=== PATIENT | female | born 1980 | race Caucasian/White ===

== ENCOUNTER 2016-09-16 03:05 | Emergency (ER) | payer OTHER ==
[~2016-09-16] VITALS: Ht 160 cm; Wt 76.0 kg
[2016-09-16 03:09] VITALS: Ht 160 cm; Wt 76.0 kg
[2016-09-16] MEDS ORDERED: LIDOCAINE 2% (MDV) 20 ML INJ INJ ONE (04:00)
--- NOTE | 2016-09-16 04:24 | ERD ---
ER Documentation Chief Complaint Date/Time DATE: 09/16/16 TIME: 04:21 Chief Complaint lower lip laceration, heavy object fell on lip about 30 minutes ago HPI This is a 35-year-old female who presents the emergency department today for a cut on her lower lip. Patient states she was trying to bring some boxes down to prepare for her camping trip when a box fell on top of her lip. Denies any loss of consciousness. Denies any previous trauma, fevers or chills. States she took Advil. ROS All systems reviewed and are negative except as per history of present illness. Allergies Allergies: Coded Allergies: Penicillins (Verified Allergy, Mild, rash, 09/16/16) PMhx/Soc History of Surgery: Yes (breast augmentation) Anesthesia Reaction: No Hx Neurological Disorder: No Hx Respiratory Disorders: No Hx Cardiac Disorders: No Hx Psychiatric Problems: No Hx Miscellaneous Medical Probl: No Hx Alcohol Use: No Hx Substance Use: No Hx Tobacco Use: No Smoking Status: Never smoker Physical Exam Vitals Vital Signs Date Time Temp Pulse Resp B/P Pulse Ox O2 Delivery O2 Flow Rate FiO2 09/16/16 03:09 99.0 68 20 116/77 97 Physical Exam Const: Pleasant, no acute distress Head: Atraumatic Eyes: Normal Conjunctiva ENT: Normal External Ears, Nose . Lower lip with evidence of 1.5 cm laceration that does not cross the vermilion border. Bleeding well controlled Neck: Full range of motion..~ No meningismus. Resp: Clear to auscultation bilaterally Cardio: Regular rate and rhythm, no murmurs Skin: No petechiae or rashes Neur: Awake and alert Psych: Normal Mood and Affect Results 24 hrs Current Medications Medications (Trade) Dose Ordered Sig/Nando Route PRN Reason Start Time Stop Time Status Last Admin Dose Admin Lidocaine (Xylocaine 2% (Mdv) 20 ml) 20 ml ONCE ONCE INJ 09/16/16 04:00 09/16/16 04:01 DC Procedures/MDM This 35-year-old female presents the emergency department today for a lower lip laceration that she sustained just prior to arrival while attempting to move some boxes in her garage. Patient is afebrile and otherwise well-appearing. There is been no loss of consciousness. Her dentition is intact. Do not feel the patient requires imaging at this time. Low suspicion for acute hemorrhage, mass, abscess, fracture. On physical exam patient did have a 1.5 cm laceration to her lower lip that was rather deep. The area did not cross her vermilion border however given how deep it was I did feel it was beneficial to use some absorbable sutures. I have explained this to the patient. I explained the risks and benefits of the procedure and the patient agreed to proceed. Area was cleaned with sterile saline. Patient tolerated the procedure well and there were no complications Laceration Repair by me: Anesthesia: 1% lidocaine locally 3 cc Location: Lower lip Tendon/Joint/Nerves: No injury Foreign body: None detected after copious irrigation and exploration Technique: 5 simple Interrupted Sutures using 5-0 nylon Complexity: No subcutaneous sutures/mucosal repair/ edge excision Post Closure Length: 1.5 cm Patient's bleeding was easily controlled in the department and there is no indication of anemia. No evidence of compartment syndrome, neurologic injury, vascular injury, open joint, tendon laceration, or foreign body. Patient is appropriate for outpatient follow up. 48 hour wound check. Scar minimization instructions given. Patient declined any pain medication for home stating that she had Tylenol Motrin and did not want anything stronger. She was instructed to follow-up in 48 hours for a wound check. Do not feel the patient requires antibiotics at this time At this time the patient is stable for discharge and outpatient management. Patient should follow up with their PCP in the next 1-2 days. They may return to the emergency department sooner for any persistent or worsening of symptoms. Patient understood and agreed with the plan. Departure Diagnosis: Primary Impression: Lip laceration Encounter type: initial encounter Qualified Code: S01.511A - Lip laceration , initial encounter Condition: Fair Patient Instructions: Laceration, Lip/Mouth Additional Instructions: Call your primary care doctor TOMORROW for an appointment during the next 1-2 days.See the doctor sooner or return here if your condition worsens before your appointment time. Wound check in 48 hours Take Tylenol Motrin for pain Keep wound clean and dry BUSHRA MONTANO PA-C Sep 16, 2016 04:24
== END 2016-09-16 04:27 | disposition home or self-care (01) ==
LOC: FTE 03:05
DX: S01.511A Laceration without foreign body of lip, initial encounter (principal); W20.8XXA Other cause of strike by thrown, projected or falling object, initial encounter; Y92.9 Unspecified place or not applicable
CPT/HCPCS: 12011; Z7502; Z7610

== ENCOUNTER 2016-09-23 00:38 | Emergency (ER) | payer OTHER ==
[~2016-09-23] VITALS: Ht 160 cm; Wt 76.0 kg
[2016-09-23 00:44] VITALS: Ht 160 cm; Wt 76.0 kg
--- NOTE | 2016-09-23 01:45 | ERD ---
ER Documentation Chief Complaint Date/Time DATE: 09/23/16 TIME: 01:43 Chief Complaint suture removal HPI This is a 35-year-old female presents to the ER for suture removal. Patient had a laceration to her lip about a week ago. Patient denies any discharge from the area she denies any pain. She has not had any fevers or chills. She feels completely better. ROS 12 point review of systems was done, all negative except per HPI. Allergies Allergies: Coded Allergies: Penicillins (Verified Allergy, Mild, rash, 09/16/16) PMhx/Soc History of Surgery: Yes (breast augmentation) Anesthesia Reaction: No Hx Neurological Disorder: No Hx Respiratory Disorders: No Hx Cardiac Disorders: No Hx Psychiatric Problems: No Hx Miscellaneous Medical Probl: No Hx Alcohol Use: No Hx Substance Use: No Hx Tobacco Use: No Smoking Status: Never smoker Physical Exam Vitals Vital Signs Date Time Temp Pulse Resp B/P Pulse Ox O2 Delivery O2 Flow Rate FiO2 09/23/16 00:44 97.8 59 20 122/59 97 Physical Exam GENERAL: The patient is well developed and appropriate for usual state of health , in no apparent distress. HEENT: Atraumatic. patient has simple interrupted sutures on lip. CHEST: Clear to auscultation bilaterally. There are no rales, wheezes or rhonchi. HEART: Regular rate and rhythm. No murmurs, clicks, rubs or gallops. NEURO: Alert and oriented Procedures/MDM Suture Removal by me: Sutures removed with tweezers and scissors without incident. Wound shows no evidence of infection, foreign body, neurologic injury, vascular injury, open joint or tendon laceration. Patient to follow up PRN. Departure Diagnosis: Primary Impression: Encounter for removal of sutures Condition: Stable Patient Instructions: Suture Removal, No Complication Referrals: SOLITARIO BADILLO (PCP) Additional Instructions: Call your primary care doctor TOMORROW for an appointment during the next 1-2 days.See the doctor sooner or return here if your condition worsens before your appointment time. MELISSA GEORGE Sep 23, 2016 01:44
== END 2016-09-23 01:53 | disposition home or self-care (01) ==
LOC: FTE 00:38
DX: Z48.02 Encounter for removal of sutures (principal)
CPT/HCPCS: 99281